=== PATIENT | male | born 1985 | race American Indian/Alaskan Native ===

== ENCOUNTER 2019-04-22 04:15 | Emergency (ER) | payer SELFPAY ==
[2019-04-22 04:22] VITALS: BP 129/86
--- NOTE | 2019-04-22 05:01 | XRay Report ---
EXAMINATION: Left shoulder radiograph, 2 views, 04/22/2019 CLINICAL INFORMATION: Left shoulder pain and swelling COMPARISON: None. FINDINGS: There is no evidence of acute fracture or dislocation of the left shoulder. Signer Name: Carolin Cantu MD Signed: 04/22/2019 4:56 AM Workstation Name: [id number]
[2019-04-22] MEDS ORDERED: KETOROLAC 30 MG/1 ML INJ IM ONE (05:21)
[2019-04-22] MEDS ORDERED: tiZANidine TAB 4 MG TAB PO ONE (05:21)
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
== END 2019-04-22 05:35 | disposition home or self-care (01) ==
LOC: ED 04:15
DX: S46.912A Strain of unspecified muscle, fascia and tendon at shoulder and upper arm level, left arm, initial encounter (principal); F17.200 Nicotine dependence, unspecified, uncomplicated; X58.XXXA Exposure to other specified factors, initial encounter; Y93.89 Activity, other specified; Y92.89 Other specified places as the place of occurrence of the external cause; Y99.8 Other external cause status
CPT/HCPCS: 73030; 96372; 99284; J1885